=== PATIENT | male | born 1975 | race Caucasian/White ===

== ENCOUNTER 2021-03-01 17:17 | Inpatient (IN) ==
[2021-03-01 18:05] LABS: Amorphous Sediment,Urine Few per hpf (None-Few); Bacteria,Urine Few per hpf (None-Few); Bilirubin,Urine Negative (Negative); Blood,Urine Negative (Negative); Clarity,Urine Clear (Clear); Color,Urine Light-Yellow (Yellow); Glucose,Urine (UA) 150 mg/dL (Normal); Ketones,Urine Negative (Negative); Leukocyte Esterase,Urine Negative (Negative); Mucus,Urine Few per lpf (None-Few); Nitrite,Urine Negative (Negative); Protein,Urine Negative (Neg-Trace); RBC,Urine 0-3 per hpf (0-3); Specific Gravity,Urine 1.022 (1.010-1.025); Urobilinogen,Urine Normal (Normal); WBC,Urine 0-3 per hpf (0-3)
[2021-03-01 18:07] LABS: Basophils % 0.3 %; Eosinophils # 0.1 K/mcL (0.0-0.6); Eosinophils % 1.4 %; Hematocrit 40.9 % (37.5-50.1); Hemoglobin 13.7 g/dL (12.9-16.9); Immature Granulocytes % 0.3 % (0-4); Lymphocytes % 34.4 %; Mean Corpuscular HGB Conc 33.5 g/dL (31.6-35.5); Mean Corpuscular Hemoglobin 30.6 pg (28.0-33.3); Mean Corpuscular Volume 91.3 fL (83.0-100.0); Mean Platelet Volume 9.1 fL (9.4-12.4); Monocytes # 0.8 K/mcL (0.0-1.3); Monocytes % 12.8 %; Platelet Count 283 K/mcL (140-400); Red Blood Count 4.48 M/mcL (4.19-5.50); Segmented Neutrophils % 50.8 %; White Blood Count 5.9 K/mcL (4.3-11.1)
[2021-03-01 18:22] LABS: Estimated Average Glucose 105 mg/dl; Hemoglobin A1C 5.3 %
[2021-03-01 18:36] LABS: Amphetamine Screen,Urine Negative ng/mL (Cutoff=1000); Barbiturate Screen,Urine Negative ng/mL (Cutoff=200)
[2021-03-01 18:37] LABS: Benzodiazepines Screen,Urine Negative ng/mL (Cutoff=300); Cannabinoid Screen,Urine Negative ng/mL (Cutoff = 50); Cocaine Screen,Urine Positive ng/mL (Cutoff= 300); Opiate Screen,Urine Negative ng/mL (Cutoff=300); Phencyclidine Screen,Urine Negative ng/mL (Cutoff=25)
[2021-03-01 19:01] LABS: Acetaminophen < 10 mcg/mL (10-20); BUN/Creatinine Ratio 10 (6-26); Blood Urea Nitrogen 8 mg/dL (6-20); Calcium 8.7 mg/dL (8.6-10.3); Carbon Dioxide 28 mEq/L (23-29); Chloride 105 mEq/L (98-107); Chol/HDL Ratio 2.7 (0-4.9); Cholesterol 129 mg/dL (< 200); Glucose 60 mg/dL (70-105); HDL Cholesterol 47 mg/dL (40-59); LDL Cholesterol,Calculated 63 mg/dL (< 100); Osmolality,Calculated 284 (280-300); Potassium 3.5 mEq/L (3.5-5.1); Salicylate < 2.5 mg/dL (15.0-30.0); Sodium 139 mEq/L (136-145); Triglycerides 93 mg/dL (< 150); eGFR For African Americans > 60 (> 60); eGFR For Non-African Americans > 60 (> 60)
[2021-03-01 19:35] LABS: Ethanol < 10 mg/dL (Less than 10)
[2021-03-01 22:13] LABS: Influenza A PCR Negative (Negative); Influenza B PCR Negative (Negative); Resp. Syncytial Virus PCR Negative (Negative)
[2021-03-01 22:15] LABS: SARS-CoV-2 by PCR (In House) Negative (Negative)
[2021-03-01] MEDS ORDERED: QUEtiapine Fumarate 25 MG TABLET PO PRN (23:27)
[2021-03-01] MEDS ORDERED: *HR* LORazepam 2 MG/ML VIAL IM PRN (23:27)
[2021-03-01] MEDS ORDERED: haloperidoL 5 MG TABLET PO PRN (23:27)
[2021-03-01] MEDS ORDERED: Haloperidol Lactate 5 MG/ML VIAL IM PRN (23:27)
[2021-03-01] MEDS ORDERED: *HR* LORazepam 1 MG TABLET PO PRN (23:27)
[2021-03-02] MEDS: traZODone 50 MG TABLET PO PRN ×2 (01:54→21:31)
[2021-03-02] MEDS ORDERED: traZODone 50 MG TABLET PO SCH (09:00)
[2021-03-02] MEDS: lamoTRIgine 100 MG TABLET PO SCH (09:05)
[2021-03-02] MEDS: Ziprasidone 20 MG CAPSULE PO SCH ×2 (09:05→21:31)
[2021-03-02] MEDS ORDERED: MOM Conc 10 ML UD.LIQ PO PRN (11:23)
[2021-03-02] MEDS ORDERED: Mag Hydrox/Al Hydrox/Simeth 30 ML UDC PO PRN (11:23)
[2021-03-02] MEDS ORDERED: Nicotine 21 MG PATCH.TD24 TD PRN (11:23)
[2021-03-03] MEDS: Ziprasidone 20 MG CAPSULE PO SCH ×2 (09:07→21:24)
[2021-03-03] MEDS: lamoTRIgine 100 MG TABLET PO SCH (09:07)
[2021-03-03] MEDS: Ibuprofen 400 MG TABLET PO PRN (09:07)
[2021-03-03] MEDS: traZODone 50 MG TABLET PO PRN (21:24)
[2021-03-03] MEDS: hydrOXYzine pamoate 25 MG CAPSULE PO PRN (22:55)
[2021-03-04] MEDS: Ziprasidone 20 MG CAPSULE PO SCH ×2 (10:55→20:47)
[2021-03-04] MEDS: lamoTRIgine 100 MG TABLET PO SCH (10:56)
[2021-03-04] MEDS: traZODone 50 MG TABLET PO SCH (20:48)
[2021-03-05] MEDS: Ziprasidone 20 MG CAPSULE PO SCH ×2 (08:43→21:01)
[2021-03-05] MEDS: lamoTRIgine 100 MG TABLET PO SCH (08:43)
[2021-03-05] MEDS: traZODone 50 MG TABLET PO SCH (21:01)
[2021-03-05] MEDS: hydrOXYzine pamoate 25 MG CAPSULE PO PRN (22:52)
[2021-03-06] MEDS: Ziprasidone 20 MG CAPSULE PO SCH ×2 (08:41→21:01)
[2021-03-06] MEDS: lamoTRIgine 100 MG TABLET PO SCH (08:42)
[2021-03-06] MEDS: traZODone 50 MG TABLET PO SCH (21:01)
[2021-03-06] MEDS: hydrOXYzine pamoate 25 MG CAPSULE PO PRN (23:00)
[2021-03-07] MEDS: lamoTRIgine 100 MG TABLET PO SCH (08:52)
[2021-03-07] MEDS: Ziprasidone 20 MG CAPSULE PO SCH ×2 (08:52→20:58)
[2021-03-07] MEDS: traZODone 50 MG TABLET PO SCH (20:58)
[2021-03-07] MEDS: hydrOXYzine pamoate 25 MG CAPSULE PO PRN (22:21)
[2021-03-08] MEDS: Ziprasidone 20 MG CAPSULE PO SCH ×2 (08:41→20:43)
[2021-03-08] MEDS: lamoTRIgine 100 MG TABLET PO SCH (08:41)
[2021-03-08] MEDS: hydrOXYzine pamoate 25 MG CAPSULE PO PRN (20:43)
[2021-03-08] MEDS: traZODone 50 MG TABLET PO SCH (20:43)
[2021-03-08] MEDS: Ibuprofen 400 MG TABLET PO PRN (20:43)
[2021-03-09] MEDS: Ziprasidone 20 MG CAPSULE PO SCH (08:57)
[2021-03-09] MEDS: lamoTRIgine 100 MG TABLET PO SCH (08:57)
[2021-03-09 09:25] VITALS: BP 141/84; PULSE 98; TEMP 97.4; O2SAT 97
== END 2021-03-09 11:20 | DRG 750 ==
LOC: EMEROOARM 17:17 → 1ANU 23:40
PROVIDERS: ADMIT Psychiatry & Neurology Psychiatry; ATTEND Psychiatry & Neurology Psychiatry